=== PATIENT | male | born 1970 | race Caucasian/White ===

== ENCOUNTER 2018-02-11 13:48 | Outpatient (CLI) | payer OTHER ==
[~2018-02-11 13:48] MED LIST: METFORMIN HCL500 MG PO; ZIAC 10/6.25 MG1 TAB PO
== END 2018-02-11 13:56 | disposition home or self-care (01) ==
LOC: RAD 13:48
DX: I10 Essential (primary) hypertension (principal)

== ENCOUNTER 2018-02-12 05:50 | Day surgery (SDC) | payer OTHER | END 2018-02-12 13:45 | disposition home or self-care (01) | LOC: CIR.AMB 05:50 | DX: N47.1 Phimosis (principal) ==